=== PATIENT | female | born 1985 | race Two or more races ===

== ENCOUNTER → 2017-03-14 | Outpatient (REF) | payer OTHER ==
[2017-03-14 13:01] LABS: BASO % 0.2 % (0.0-1.0); EOS # 0.1 10^3/uL (0.0-0.50); EOS % 1.3 % (0.0-3.0); IMMATURE GRANULOCYTE % 0.2 % (0-0); LYMPH # 1.8 10^3/uL (1.5-4.5); LYMPH % 29.7 % (24.0-44.0); MEAN CORPUSCULAR HEMOGLOBIN 28.7 pg (27.0-33.0); MEAN CORPUSCULAR HGB CONC 33.5 g/dl (32.0-36.5); MEAN CORPUSCULAR VOLUME 85.7 fl (80.0-96.0); MONO # 0.3 10^3/uL (0.0-0.8); MONO % 5.4 % (0.0-5.0); NEUTROPHILS # 3.9 10^3/uL (1.8-7.7); NEUTROPHILS % 63.2 % (36.0-66.0); PLATELET COUNT, AUTOMATED 218 10^3/uL (150-450); RED CELL DISTRIBUTION WIDTH 12.3 % (11.5-14.5); WHITE BLOOD COUNT 6.1 10^3/uL (4.0-10.0)
[2017-03-14 13:21] LABS: ERYTHROCYTE SEDIMENTATION RATE 14 mm/hr (0-20)
[2017-03-14 13:31] LABS: ALBUMIN 4.1 GM/DL (3.2-5.2); ALBUMIN/GLOBULIN RATIO 1.08 (1.00-1.93); ALKALINE PHOSPHATASE 63 U/L (45-117); ALT/SGPT 20 U/L (12-78); ANION GAP 7 MEQ/L (8-16); AST/SGOT 16 U/L (7-37); BILIRUBIN,TOTAL 0.4 MG/DL (0.2-1.0); BLOOD UREA NITROGEN 11 MG/DL (7-18); CALCIUM LEVEL 8.6 MG/DL (8.5-10.1); CARBON DIOXIDE LEVEL 28 MEQ/L (21-32); CHLORIDE LEVEL 106 MEQ/L (98-107); CREATININE FOR GFR 0.72 MG/DL (0.55-1.02); FERRITIN 47 NG/ML (8-252); GLOMERULAR FILTRATION RATE > 60.0 (>60); GLUCOSE, FASTING 67 MG/DL (70-105); POTASSIUM SERUM 3.3 MEQ/L (3.5-5.1); SODIUM LEVEL 141 MEQ/L (136-145); TOTAL PROTEIN 7.9 GM/DL (6.4-8.2)
[2017-03-16 12:43] LABS: ALBUMIN % 57.6 % (55.8-66.1); GAMMA GLOBULIN % 18.4 % (11.1-18.8)
[2017-03-19 15:13] LABS: VITAMIN E LEVEL 8.5 mg/L (5.3-16.8)
== END ==
LOC: M LABNEURO 10:41
PROVIDERS: ATTEND Psychiatry & Neurology Neurology
DX: G62.9 Polyneuropathy, unspecified (principal); Z79.899 Other long term (current) drug therapy

== ENCOUNTER → 2017-04-05 | Outpatient (REF) | payer OTHER | LOC: M SFHCLERA 12:56 | DX: J02.9 Acute pharyngitis, unspecified (principal) ==

== ENCOUNTER → 2017-06-13 | Outpatient (REF) | payer OTHER | LOC: M SFHCLERA 19:07 | DX: K52.9 Noninfective gastroenteritis and colitis, unspecified (principal) ==

== ENCOUNTER → 2017-07-08 | Outpatient (REF) | payer OTHER | LOC: M SFHCLERA 11:30 | DX: R11.10 Vomiting, unspecified (principal) ==

== ENCOUNTER 2018-07-30 08:49 | Day surgery (SDC) | payer OTHER ==
[~2018-07-30] VITALS: Ht 160 cm; Wt 64.0 kg
[~2018-07-30 08:49] MED LIST: EMER1CHW PO; IBUP-1022 PO; LIDOCAINE 1% MDV 20ML VIAL SQ PRN; MIDAZOLAM INJ 2 MG/2 ML VIAL (J2250) IV SCH; fentaNYL 100 MCG/2 ML INJECTION (J3010) IV SCH
[2018-07-30] MEDS ORDERED: EPINEPHrine INJ 1 MG/ML 1ML AMP ONE (08:50)
[2018-07-30] MEDS ORDERED: dexameTHASONE 10 MG/1 ML VIAL PRES.FREE (J1100) ONE (08:50)
[2018-07-30] MEDS ORDERED: ROPIvacaine 0.5% 30 ML INJECTION (J2795 PER 1MG) ONE (08:50)
[2018-07-30 09:26] LABS: URINE PREG TEST NEGATIVE (NEGATIVE)
[2018-07-30 09:29] LABS: HEMATOCRIT 41.1 % (36.0-47.0); HEMOGLOBIN 13.4 g/dl (12.0-15.5); MEAN CORPUSCULAR HEMOGLOBIN 28.4 pg (27.0-33.0); MEAN CORPUSCULAR HGB CONC 32.6 g/dl (32.0-36.5); MEAN CORPUSCULAR VOLUME 87.1 fl (80.0-96.0); PLATELET COUNT, AUTOMATED 188 10^3/uL (150-450); RED BLOOD COUNT 4.72 10^6/uL (4.00-5.40); WHITE BLOOD COUNT 8.1 10^3/uL (4.0-10.0)
[2018-07-30] MEDS ORDERED: LR 1,000 ML IV ONE (09:30)
[2018-07-30 09:48] LABS: BLOOD UREA NITROGEN 11 MG/DL (7-18); CALCIUM LEVEL 8.6 MG/DL (8.5-10.1); CARBON DIOXIDE LEVEL 27 MEQ/L (21-32); CHLORIDE LEVEL 109 MEQ/L (98-107); CREATININE FOR GFR 0.65 MG/DL (0.55-1.30); GLOMERULAR FILTRATION RATE > 60.0 (>60); GLUCOSE, FASTING 85 MG/DL (70-100); POTASSIUM SERUM 3.5 MEQ/L (3.5-5.1); SODIUM LEVEL 139 MEQ/L (136-145)
[2018-07-30] MEDS ORDERED: MIDAZOLAM INJ 2 MG/2 ML VIAL (J2250) As Ordered ONE ×2 (09:50→11:52)
[2018-07-30] MEDS ORDERED: fentaNYL 100 MCG/2 ML INJECTION (J3010) As Ordered ONE (09:50)
[2018-07-30] MEDS ORDERED: KETOROLAC 60 MG/2 ML VIAL (J1885) As Ordered ONE ×2 (11:52→12:31)
[2018-07-30] MEDS ORDERED: ePHEDrine SULFATE 25 MG/5 ML(5MG/ML) SYRINGE As Ordered ONE (11:52)
[2018-07-30] MEDS ORDERED: fentaNYL 250 MCG/5 ML INJECTION (J3010) As Ordered ONE (11:52)
[2018-07-30] MEDS ORDERED: dexameTHASONE 4 MG/ML 1ML VIAL (J1100) As Ordered ONE (11:52)
[2018-07-30] MEDS ORDERED: PHENYLephrine HCL 500 MCG/5 ML (100MCG/ML) SYRINGE (J2370) As Ordered ONE (11:52)
[2018-07-30] MEDS ORDERED: ONDANSETRON 4MG/2ML VIAL (J2405) As Ordered ONE ×2 (11:52→16:30)
[2018-07-30] MEDS ORDERED: LIDOCAINE 2% INJ 100 MG/5 ML SDV (FOR ANES.) As Ordered ONE (11:52)
[2018-07-30] MEDS ORDERED: PROPOFOL 200 MG/20 ML VIAL As Ordered ONE ×2 (11:52→14:09)
[2018-07-30] MEDS ORDERED: ACETAMINOPHEN 1000MG 100ML IV BTL (OFIRMEV) (J0131 PER 10MG) As Ordered ONE (14:22)
[2018-07-30] MEDS: fentaNYL 100 MCG/2 ML INJECTION (J3010) IV PRN ×4 (14:30→14:45)
[2018-07-30] MEDS: NORCO, ANEXSIA 5/325MG TABLET (HYDROcodone/ACETAMINOPHEN) PO PRN ×2 (14:35→16:58)
[2018-07-30] MEDS ORDERED: NORCO, ANEXSIA 5/325MG TABLET (HYDROcodone/ACETAMINOPHEN) As Ordered ONE ×2 (14:35→16:28)
[2018-07-30] MEDS ORDERED: LR 1,000 ML IV SCH ×2 (14:45)
[2018-07-30] MEDS ORDERED: ONDANSETRON 4MG/2ML VIAL (J2405) IV PRN (14:45)
[2018-07-30] MEDS ORDERED: HYDROMORPHONE HCL 0.5 MG/ 0.5 ML SYRINGE (J1170 PER 1) As Ordered ONE (14:49)
[2018-07-30] MEDS: HYDROMORPHONE HCL 0.5 MG/ 0.5 ML SYRINGE (J1170 PER 1) IV PRN ×3 (14:50→15:00)
[2018-07-30 17:57] VITALS: BP 108/55
--- NOTE | 2018-07-31 21:21 | RO ---
DATE OF PROCEDURE: 07/30/2018 PREOPERATIVE DIAGNOSIS: 1. Right knee anterior cruciate ligament rupture. POSTOPERATIVE DIAGNOSIS: 1. Right knee anterior cruciate ligament rupture. 2. Right knee patellar chondromalacia. PROCEDURE: 1. Right knee arthroscopic-assisted anterior cruciate ligament (ACL) reconstruction with [id number] autograft. 2. Right knee arthroscopic chondroplasty of the patella. SURGEON: Dr. Nolberto Wilson FIRER WATERTENDER: BHAVANA Pederson ANESTHESIA: General with preoperative adductor canal block. IV FLUIDS: Lactated Ringer's. ESTIMATED BLOOD LOSS: 10 mL. IMPLANTS: Arthrex 7 x 23 mm PEEK interference screw in the femur, 8 x 28 mm PEEK interference screw in the tibia. CLOSURE: Monocryl. DESCRIPTION OF PROCEDURE: The patient was identified in the preoperative holding area. The right leg marked by myself. She had an adductor canal block by anesthesia. She was brought the operating room, placed supine on a well-padded operating room (OR) table. General anesthesia was induced. She received appropriate intravenous (IV) antibiotics within one hour of incision. Examination under anesthesia of the left knee revealed a grade 2A Jace. There was a pivot glide. She had full range of motion. Two quadrants lateral patellar mobility with a good endpoint. Negative posterior drawer. Examination of the right knee under anesthesia revealed a grade 2+ B Jace with a dramatically positive pivot shift. Range of motion was 0 to 135 degrees, stable to varus and valgus stress, no patellar instability. A well-padded tourniquet was applied to the right thigh. The right leg was then prepped and draped in the normal sterile fashion from the tourniquet down to the toes. Prior to incision, a time-out was performed per hospital protocol. Omar was present for the entire procedure and participated in all essential portions of the procedure. This included patient positioning and draping, holding the arthroscope, holding the knee hyperflexed during the drilling of the femoral tunnel, retrieving suture, assisting with passage of the graft, graft preparation, and wound closure. The right leg was exsanguinated with an Esmarch bandage, the tourniquet inflated to 250 mmHg. I immediately proceeded with the BTB autograft harvest. A longitudinal incision with a 15 blade just medial to the mid point. Peritenon layer was poorly defined but protected as best as possible for later repair. I then harvested the central one-third of the patellar tendon using a fresh 10 blade with the graft 10 mm in width. Bone blocks were harvested from the patella and tibial tubercle with the saw and osteotome. Two drill holes were placed in each bone block with #2 FiberWire through each drill hole. The graft was prepared on the back table by my waiter/waitress first class so that they could easily pass through a 10, bulleted to fit through a 9 at the tip. Extra bone was saved to pack into the patellar defect at the end of the case. Graft was protected on the back table with a moist Ray-Batool. With the knee in 40 degrees of flexion, the patellar tendon was then sutured with figure-of-8 #0 Vicryl sutures. The knee was insufflated with lactated Ringer's. A modified anterolateral portal was established with 11 blade and the 30-degree arthroscope introduced into the joint. Findings demonstrated a grade 2 chondromalacia of the entire central patella. The medial and lateral facets were in good condition. The trochlea was in good condition. There were no loose bodies. Medial compartment was entered. There were no meniscus tears, new high-grade chondromalacia. The anterior cruciate ligament (ACL) was visualized within the intercondylar notch but appeared lax. The leg was then brought into a figure-of-4 position; there were no tears of the lateral meniscus. A modified anteromedial portal was then localized with a spinal needle to give the appropriate angle for drilling a hyperflexed femoral tunnel. On probing of the ACL, there was a near complete tear just off the femur. The shaver and cautery were used to remove all remaining ACL fibers. There was a very prominent fat pad, which was ablated with the radiofrequency cautery for visualization purposes. The proposed femoral tunnel was marked with a ring curette. This was at the anatomic attachment for single bundle ACL reconstruction. An 8 mm AM portal guide was then placed through the medial portal. The knee was hyperflexed and Breath pin was advanced out the lateral femoral condyle. Appropriate position confirmed after switching arthroscopy portals. A 10 mm low profile acorn reamer was then used to create a femoral tunnel approximately 25 mm in depth. I did not violate the lateral cortex. Bony debris removed with a shaver. PDS passing sutures then placed through the Beath pin as it was removed out the lateral thigh and saved for later graft passage. Femoral tunnel was inspected. There was less than a 2 mm back wall. The tunnel was in a great position. Next, the tibial drill guide was used to drill a tibial tunnel with the guide pin entering the joint through ho-chunk ACL fibers and approximately 8-9 mm anterior to the intrameniscal ligament. Prior to drilling the tibial tunnel, the knee was brought into full extension and the guide pin was appropriate position to avoid notch impingement. A 10 mm reamer was then used to drill the tibial tunnel and soft tissue was removed at the aperture with the shaver and a pituitary rongeur to help avoid a cyclops lesion. The PDS passing suture was then retrieved out the tibial tunnel. The graft was passed into the joint, docked into the femoral tunnel. Nitinol wire was placed and a 7 mm tap was placed fpc. A 7 x 23 mm PEEK interference screw from Arthrex was passed for the Nitinol wire with the knee hyperflexed. This had excellent fixation. The knee was brought into full extension. No notch impingement. The knee was then brought into full extension on the OR table, large bump placed behind the femoral condyles, Nitinol wire placed between the tibial bone block and tunnel, and then an 8 x 23 mm PEEK interference screw was placed over the Nitinol wire as my waiter/waitress first class applied a posterior drawer to tibial tubercle and I applied traction to the distal tibial insertion. There was excellent bite on that screw. There was only about 3 mm of the bone block protruding beyond the tibial tunnel. She had a grade 1A Jace. She had full extension and flexion 120 degrees. I repeated the Jace. There was no change. A saw was used to remove the prominent portion of the tibial bone block. All sutures were then cut. The arthroscope was placed back into the joint, graft was well positioned and probed and found to be under excellent tension. No loose bodies seen. The knee was irrigated and drained. Bone graft was packed into the patellar donor site, and the overlying periosteum closed with #2-0 Vicryl. The peritenon bursal layer was closed with a running #2-0 Vicryl, subcuticular #2-0 Vicryl and a running #3-0 Monocryl. Steri-Strips were placed over the skin. All counts correct times two. Bulky sterile dressing was applied, and then she was placed into a hinged knee brace locked in extension. I should have mentioned tourniquet was then brought down with excellent reperfusion. She was extubated and transferred to the post-anesthesia care unit (PACU) in stable condition. DISPOSITION: The patient will be weightbearing as tolerated with a hinged knee brace locked in extension. It can be unlocked when she has good quadriceps control. Therapy starting up within 1 week. She will take full dose aspirin for a month for deep vein thrombosis (DVT) prophylaxis. Patient will also be moving to the [place] at the end of August. The patient has my phone number. I would be happy to speak to any orthopedic surgeon if they have any questions about this knee or the other one. HARDEEP
== END 2018-07-30 17:59 | disposition home or self-care (01) ==
LOC: M SDC 08:49
PROVIDERS: ATTEND Orthopaedic Surgery
DX: S83.511A Sprain of anterior cruciate ligament of right knee, initial encounter (principal); M22.41 Chondromalacia patellae, right knee; Z87.891 Personal history of nicotine dependence; F41.9 Anxiety disorder, unspecified; F32.9 Major depressive disorder, single episode, unspecified; Z79.899 Other long term (current) drug therapy; Y93.9 Activity, unspecified; Y92.9 Unspecified place or not applicable
CPT/HCPCS: 29888; 36415; 64447; 80048; 84703; 85027; C1713; J0131; J0690; J1100; J1170; J1885; J2250; J2370; J2405; J2795; J3010

== ENCOUNTER → 2022-04-18 | Outpatient (CLI) | payer OTHER ==
[~2022-04-18] MED LIST changes: -LIDOCAINE 1% MDV 20ML VIAL SQ PRN; -MIDAZOLAM INJ 2 MG/2 ML VIAL (J2250) IV SCH; -fentaNYL 100 MCG/2 ML INJECTION (J3010) IV SCH
[2022-04-18 11:28] LABS: BASO % 0.2 % (0.0-1.0); EOS # 0.1 10^3/uL (0.0-0.5); EOS % 1.2 % (0.0-3.0); HEMOGLOBIN 13.1 g/dl (12.0-15.5); LYMPH # 1.4 10^3/uL (1.5-5.0); LYMPH % 21.2 % (24.0-44.0); MEAN CORPUSCULAR HEMOGLOBIN 27.8 pg (27.0-33.0); MEAN CORPUSCULAR VOLUME 86.9 fl (80.0-96.0); MONO # 0.5 10^3/uL (0.0-0.8); MONO % 6.8 % (2.0-8.0); NEUTROPHILS # 4.7 10^3/uL (1.5-8.5); NEUTROPHILS % 70.4 % (36.0-66.0); PLATELET COUNT, AUTOMATED 202 10^3/uL (150-450); RED BLOOD COUNT 4.72 10^6/uL (4.00-5.40); WHITE BLOOD COUNT 6.6 10^3/uL (4.0-10.0)
[2022-04-18 11:52] LABS: URIC ACID 4.1 MG/DL (3.1-7.8)
[2022-04-18 11:53] LABS: ERYTHROCYTE SEDIMENTATION RATE 20 mm/hr (0-20)
[2022-04-18 11:55] LABS: ALBUMIN 3.9 G/DL (3.2-5.2); ALKALINE PHOSPHATASE 51 U/L (46-116); ALT/SGPT 16 U/L (7.0-40); AST/SGOT 15 U/L (<34); BILIRUBIN,TOTAL 0.6 MG/DL (0.3-1.2); BLOOD UREA NITROGEN 15 MG/DL (9-23); CALCIUM LEVEL 9.2 MG/DL (8.5-10.1); CARBON DIOXIDE LEVEL 25 MMOL/L (20-31); CHLORIDE LEVEL 107 MMOL/L (98-107); CREATININE FOR GFR 0.76 MG/DL (0.55-1.30); GLOMERULAR FILTRATION RATE > 60.0 (>60); GLUCOSE, FASTING 86 MG/DL (60-100); POTASSIUM SERUM 3.8 MMOL/L (3.5-5.1); SODIUM LEVEL 140 MMOL/L (136-145); TOTAL PROTEIN 6.9 G/DL (5.7-8.2)
[2022-04-18 12:36] LABS: COMPLEMENT C3 109.1 MG/DL (84.0-160.0)
[2022-04-18 12:37] LABS: RHEUMATOID FACTOR QUANT 3.7 IU/ML (<14)
[2022-04-18 13:55] LABS: COMPLEMENT C4 26.2 MG/DL (12-36)
== END ==
LOC: M PLALAB 07:14
PROVIDERS: ATTEND Physician Assistant
DX: H15.009 Unspecified scleritis, unspecified eye (principal)

== ENCOUNTER 2022-07-28 15:20 | Emergency (ER) | payer OTHER ==
[~2022-07-28] VITALS: Ht 160 cm; Wt 58.8 kg
[2022-07-28 16:33] LABS: BASO % 0.2 % (0.0-1.0); EOS # 0.1 10^3/uL (0.0-0.5); EOS % 0.5 % (0.0-3.0); HEMATOCRIT 45.2 % (36.0-47.0); HEMOGLOBIN 14.9 g/dl (12.0-15.5); LYMPH # 0.4 10^3/uL (1.5-5.0); LYMPH % 4.2 % (24.0-44.0); MEAN CORPUSCULAR HEMOGLOBIN 28.1 pg (27.0-33.0); MEAN CORPUSCULAR VOLUME 85.3 fl (80.0-96.0); MONO # 0.3 10^3/uL (0.0-0.8); MONO % 3.3 % (2.0-8.0); NEUTROPHILS # 9.4 10^3/uL (1.5-8.5); NEUTROPHILS % 91.5 % (36.0-66.0); PLATELET COUNT, AUTOMATED 192 10^3/uL (150-450); WHITE BLOOD COUNT 10.2 10^3/uL (4.0-10.0)
[2022-07-28 16:58] LABS: LIPASE 41 U/L (12-53)
[2022-07-28 17:00] LABS: ALBUMIN 4.1 G/DL (3.2-5.2); ALKALINE PHOSPHATASE 57 U/L (46-116); ALT/SGPT 31 U/L (7.0-40); AST/SGOT 69 U/L (<34); BILIRUBIN,DIRECT 0.2 MG/DL (<0.4); BILIRUBIN,TOTAL 0.6 MG/DL (0.3-1.2); BLOOD UREA NITROGEN 12 MG/DL (9-23); CALCIUM LEVEL 8.7 MG/DL (8.5-10.1); CARBON DIOXIDE LEVEL 25 MMOL/L (20-31); CHLORIDE LEVEL 108 MMOL/L (98-107); CREATININE FOR GFR 0.64 MG/DL (0.55-1.30); GLOMERULAR FILTRATION RATE > 60.0 (>60); GLUCOSE, FASTING 88 MG/DL (60-100); SODIUM LEVEL 141 MMOL/L (136-145); TOTAL PROTEIN 7.2 G/DL (5.7-8.2)
[2022-07-28] MEDS ORDERED: KETOROLAC 30 MG/ML 1ML VIAL IV ONE (18:20)
[2022-07-28] MEDS ORDERED: ONDANSETRON 4MG 2ML VIAL IV ONE (18:20)
[2022-07-28] MEDS ORDERED: NS 1,000 ML IV ONE (18:20)
[2022-07-28 18:31] LABS: HCG, SERUM QUANTITATIVE < 2.6 MIU/ML (<4.2)
[2022-07-28] MEDS ORDERED: ISOVUE-370 76% 100ML VIAL As Ordered ONE (18:42)
[2022-07-28] MEDS ORDERED: ONDA4TAB6 PO ×2 (20:15→20:51)
[2022-07-28] MEDS ORDERED: OMEP40CA4 PO ×2 (20:15→20:51)
[2022-07-28 20:58] VITALS: BP 112/76
== END 2022-07-28 21:01 | disposition home or self-care (01) ==
LOC: M ED 15:20
DX: R10.13 Epigastric pain (principal); F41.9 Anxiety disorder, unspecified; F32.A Depression, unspecified; Z87.442 Personal history of urinary calculi; Z87.891 Personal history of nicotine dependence
CPT/HCPCS: 74177; 80048; 80076; 81001; 83690; 84702; 85025; 96374; 96375; 99284; J1885; J2405; Q9967

== ENCOUNTER → 2023-02-24 | Outpatient (CLI) | payer OTHER ==
[~2023-02-24] MED LIST changes: +OMEP40CA4 PO; +ONDA4TAB6 PO
== END ==
LOC: M WHC 13:16
PROVIDERS: ATTEND Nurse Practitioner Family
DX: R22.1 Localized swelling, mass and lump, neck (principal)

== ENCOUNTER → 2024-04-15 | Outpatient (CLI) | payer OTHER ==
[~2024-04-15] MED LIST changes: +ONDA-282 PO; -ONDA4TAB6 PO
== END ==
LOC: M WHC 13:35
PROVIDERS: ATTEND Nurse Practitioner Family
DX: R92.2 Inconclusive mammogram (principal)

== ENCOUNTER → 2024-04-30 | Outpatient (CLI) | payer OTHER | LOC: M WHC 09:04 | PROVIDERS: ATTEND Nurse Practitioner Family | DX: Z12.31 Encounter for screening mammogram for malignant neoplasm of breast (principal); N60.12 Diffuse cystic mastopathy of left breast | CPT/HCPCS: 76641; 77066; G0279 ==